=== PATIENT | female | born 2000 | race African-American/Black ===

== ENCOUNTER 2022-04-29 19:18 | Observation (INO) ==
[2022-04-29 20:22] LABS: BILIRUBIN,URINE NEGATIVE (NEGATIVE); BLOOD/HEMOGLOBIN,URINE NEGATIVE (NEGATIVE); GLUCOSE, URINE NEGATIVE (NEGATIVE); KETONES,URINE 2+ (NEGATIVE); LEUKOCYTE ESTERASE ,URINE 3+ (NEGATIVE); NITRITES,URINE NEGATIVE (NEGATIVE); PROTEIN,URINE 2+ (NEGATIVE); UROBILINOGEN,URINE 1+ (NORMAL)
[2022-04-29 20:30] LABS: AMNISURE ROM TEST NO MEMBRANES RUPTURE (NO RUPTURE); COLOR,URINE YELLOW (YELLOW)
[2022-04-29 20:31] LABS: APPEARANCE,URINE SLIGHTLY HAZY (CLEAR)
[2022-04-29 20:38] LABS: BACTERIA,URINE TRACE /HPF (NEGATIVE); RBC,URINE 0-2 /HPF (0-3); SQUAMOUS EPITHELIAL CELL,UR FEW /HPF (NEGATIVE)
[2022-04-29 20:39] LABS: YEAST,URINE RARE /HPF (NEGATIVE)
[2022-04-29] MEDS ORDERED: LR 1,000 ML IV 1,000 ML IV ONE (20:46)
[2022-04-29] MEDS ORDERED: ROCEPHIN VIAL 1 GRAM 1 G in NS 100 ML IV 100 ML IV ONE (20:47)
[2022-04-29] MEDS ORDERED: NS 1,000 ML IV 1,000 ML ONE ×2 (20:49→21:40)
[2022-04-29] MEDS ORDERED: NS 1,000 ML IV 1,000 ML IV ONE ×2 (20:49→21:39)
[2022-04-29] MEDS ORDERED: ROCEPHIN VIAL 1 GRAM ONE (20:50)
[2022-04-29] MEDS ORDERED: BRETHINE INJ 1 MG VIAL SC ONE ×4 (21:39→22:18)
[2022-04-29 23:06] LABS: BASOPHILS % (AUTO) 0.5 % (0.2-1.0); EOSINOPHILS % (AUTO) 0.2 % (0.9-2.9); HEMATOCRIT 27.8 % (36.0-47.0); HEMOGLOBIN 9.4 g/dL (12.0-16.0); LYMPHOCYTES # (AUTO) 1.8 X10^3/uL (1.3-2.9); MEAN CORPUSCULAR HEMOGLOBIN 25.7 pg (27.0-34.0); MEAN CORPUSCULAR VOLUME 75.6 fL (80.0-100.0); MEAN PLATELET VOLUME 6.9 fL (7.4-11.0); MONOCYTES # (AUTO) 0.5 x10^3/uL (0.3-0.8); MONOCYTES % (AUTO) 5.7 % (0.0-13.0); NEUTROPHILS # (AUTO) 5.7 x10^3/uL (2.2-4.8); NEUTROPHILS % (AUTO) 71.6 % (42.0-75.0); RED BLOOD COUNT 3.67 X10^6/uL (3.5-5.4); RED CELL DISTRIBUTION WIDTH 13.7 % (11.6-16.5)
[2022-04-29 23:17] LABS: ALANINE AMINOTRANSFERASE 10 Units/L (12-78); ALBUMIN 2.2 g/dL (3.4-5.0); ALKALINE PHOSPHATASE 181 Units/L (46-116); ASPARTATE AMINO TRANSFERASE 14 Units/L (15-37); BLOOD UREA NITROGEN 4 mg/dL (7-18); CALCIUM 7.7 mg/dL (8.5-10.1); CARBON DIOXIDE 20.4 mmol/L (21-32); CHLORIDE 106 mmol/L (98-107); COR CA(FOR HYPOALB) 9.1 mg/dL (8.5-10.1); CREATININE 0.64 mg/dL (0.55-1.02); SODIUM 137 mmol/L (136-145); eGFR NON BLACK RACES > 60 (>60)
[2022-04-30] MEDS: NS 1,000 ML IV 1,000 ML IV SCH ×2 (00:02→07:42)
[2022-04-30] MEDS: K-DUR TAB 20 MEQ PO SCH ×2 (00:03→08:04)
[2022-04-30 00:22] VITALS: BMI 36.2
[2022-04-30] MEDS: MAGNESIUM SULFATE 1 GRAM/100 mL PREMIX 1 G/100 ML BAG IV SCH ×2 (00:49→01:57)
[2022-04-30 04:52] LABS: BASOPHILS % (AUTO) 0.2 % (0.2-1.0); EOSINOPHILS % (AUTO) 0.2 % (0.9-2.9); HEMATOCRIT 24.1 % (36.0-47.0); HEMOGLOBIN 8.2 g/dL (12.0-16.0); LYMPHOCYTES # (AUTO) 1.4 X10^3/uL (1.3-2.9); MEAN CORPUSCULAR HEMOGLOBIN 25.2 pg (27.0-34.0); MEAN CORPUSCULAR HGB CONC 33.9 g/dL (33.0-35.0); MEAN CORPUSCULAR VOLUME 74.3 fL (80.0-100.0); MEAN PLATELET VOLUME 7.3 fL (7.4-11.0); MONOCYTES # (AUTO) 0.6 x10^3/uL (0.3-0.8); MONOCYTES % (AUTO) 7.5 % (0.0-13.0); NEUTROPHILS # (AUTO) 5.6 x10^3/uL (2.2-4.8); NEUTROPHILS % (AUTO) 74.1 % (42.0-75.0); RED BLOOD COUNT 3.25 X10^6/uL (3.5-5.4); RED CELL DISTRIBUTION WIDTH 13.7 % (11.6-16.5); WHITE BLOOD COUNT 7.5 X10^3/uL (3.6-10.0)
[2022-04-30 04:58] LABS: ALANINE AMINOTRANSFERASE 9 Units/L (12-78); ALBUMIN 1.9 g/dL (3.4-5.0); ALKALINE PHOSPHATASE 152 Units/L (46-116); ASPARTATE AMINO TRANSFERASE 12 Units/L (15-37); BLOOD UREA NITROGEN 4 mg/dL (7-18); CALCIUM 7.7 mg/dL (8.5-10.1); CARBON DIOXIDE 20.9 mmol/L (21-32); CHLORIDE 107 mmol/L (98-107); COR CA(FOR HYPOALB) 9.4 mg/dL (8.5-10.1); SODIUM 136 mmol/L (136-145); TOTAL PROTEIN 5.2 g/dL (6.4-8.2); eGFR NON BLACK RACES > 60 (>60)
[2022-04-30 05:40] LABS: PLATELET MORPHOLOGY COMMENT NORMAL (NORMAL)
[2022-04-30 05:51] LABS: HYPOCHROMASIA SLIGHT; MICROCYTOSIS SLIGHT
[2022-04-30] MEDS ORDERED: NS 100 ML IV 100 ML with VENOFER 400 MG IV NR ×2 (09:26)
[2022-04-30 12:42] VITALS: BP 122/79
[2022-04-30] MEDS ORDERED: ROCEPHIN 1 GRAM IV PREMIX 1 G/50 ML IV.SOLN. IV SCH (20:00)
== END 2022-04-30 13:00 | disposition home or self-care (01) ==
LOC: ER 19:28 → MED/SURG 19:28
PROVIDERS: ADMIT Obstetrics & Gynecology Obstetrics; ATTEND Specialist
DX: O47.03 False labor before 37 completed weeks of gestation, third trimester; O23.43 Unspecified infection of urinary tract in pregnancy, third trimester; N39.0 Urinary tract infection, site not specified; Z3A.35 35 weeks gestation of pregnancy

== ENCOUNTER 2022-05-13 11:25 | Inpatient (IN) ==
[2022-05-19] MEDS ORDERED: BETADINE SOLN ONE (06:23)
[2022-05-19] MEDS ORDERED: PITOCIN ONE ×2 (06:23→11:15)
[2022-05-19] MEDS ORDERED: D5 1/2 NS 1,000 ML 1,000 ML IV ONE (06:23)
[2022-05-19] MEDS ORDERED: D5 1/2 NS 1,000 mL + PITOCIN 20 UNITS/L IV 20 UNITS/1,000 ML BAG IV ONE (06:24)
[2022-05-19] MEDS ORDERED: D5 LR + PITOCIN 10 UNITS/L 10 UNITS/1,000 ML BAG IV ONE (06:24)
[2022-05-19] MEDS ORDERED: NS 100 ML IV 100 ML ONE ×2 (06:25→10:34)
[2022-05-19] MEDS ORDERED: AMPICILLIN VIAL 2 GRAM ONE (06:25)
--- NOTE | 2022-05-19 07:03 | DR.OB ---
OB Quick Note - Assessment/Plan Assessment/Plan: L&D 05/19/22 at 6:50am S-No complaint. O-Afebrile,VSS FGH=835/140 with good LTV, +accel, no decel. CTX=mild uterine irritability CVX=3cm/100%/0/VTX AROM with clear fluid. IUPC and FSE placed for baby A A-IUP at 38 0/7 weeks for induction Twin (dichorionic/diamniotic) +GBS P-Begin pitocin induction IV ABX in labor Anticipate (pt. still declines C/S)
[2022-05-19] MEDS ORDERED: MORPHINE SULFATE INJ 2 MG INJ IVP PRN (07:36)
[2022-05-19] MEDS ORDERED: NUBAIN INJ 200 MG VIAL MULTIDOSE IVP PRN (07:36)
[2022-05-19] MEDS ORDERED: D5 LR + PITOCIN 10 UNITS/L 10 UNITS/1,000 ML BAG IV PRN (07:36)
[2022-05-19] MEDS ORDERED: AMPICILLIN VIAL 2 GRAM 2 G in NS 100 ML IV + SPIKE MINIBAG* 100 ML IV SCH (07:36)
[2022-05-19] MEDS ORDERED: STADOL INJ IVP PRN (07:36)
[2022-05-19] MEDS ORDERED: REGLAN INJ 10 MG VIAL IVP PRN ×3 (07:36→12:54)
[2022-05-19] MEDS ORDERED: D5 1/2 NS 1,000 ML 1,000 ML IV SCH (07:36)
[2022-05-19] MEDS ORDERED: PITOCIN IVP ONE (07:36)
[2022-05-19] MEDS ORDERED: PHENERGAN INJ 25 MG IM PRN ×2 (07:36→12:26)
[2022-05-19] MEDS: VSL#3 PO SCH ×2 (07:51→09:41)
[2022-05-19] MEDS ORDERED: STADOL INJ ONE (08:04)
[2022-05-19] MEDS ORDERED: FENTANYL VIAL INJ 100 mcg ONE (08:44)
[2022-05-19] MEDS ORDERED: NAROPIN EPIDURAL 0.2% 100 ML ONE (08:45)
[2022-05-19] MEDS ORDERED: LR 1,000 ML IV 1,000 ML IV ONE ×2 (08:45→10:34)
[2022-05-19] MEDS ORDERED: LIDOCAINE 2%-EPI 1:200,000 ONE (10:20)
[2022-05-19] MEDS ORDERED: ANCEF VIAL 1 GRAM ONE (10:34)
[2022-05-19] MEDS ORDERED: ZOFRAN INJ 4 MG VIAL ONE (10:34)
[2022-05-19] MEDS ORDERED: KETAMINE 50 MG/5 ML-NACL SYRNG ONE (10:55)
[2022-05-19] MEDS ORDERED: DILAUDID INJ ONE (11:05)
[2022-05-19] MEDS ORDERED: VERSED ONE (11:10)
[2022-05-19] MEDS ORDERED: DIPRIVAN VIAL 20 ML ONE (11:24)
[2022-05-19] MEDS ORDERED: OFIRMEV IV 1000 MG VIAL 1,000 MG/100 ML VIAL IV ONE (11:29)
[2022-05-19] MEDS ORDERED: DECADRON INJ ONE (11:40)
--- NOTE | 2022-05-19 12:24 | DR.OB ---
OB Quick Note - Assessment/Plan Assessment/Plan: Delivery Note SHED BOSS 05/19/22 at 10:05am Patient complete and pushing. Head delivered over intact perineum. No nuchal cord. Nose and mouth bulb suctioned. Body delivered over intact perineum. Cord clamped x 2 and cut. Infant handed to attendant. Cord sent for gases. Baby A wt=5'15" and 8/9, stable to NBN. Baby A VTX/OA. Second baby stabilized manually and externally. AROM with clear fluid. IUPC placed. Footling breech noted. Uterus clamped down and baby unable to rotate despite pushing and attempts at manual rotation. To C/S.
[2022-05-19] MEDS ORDERED: BENADRYL INJ 50 MG VIAL IVP PRN (12:26)
[2022-05-19] MEDS ORDERED: ZOFRAN INJ 4 MG VIAL IVP PRN ×2 (12:26→12:54)
[2022-05-19] MEDS: AMPICILLIN VIAL 1 GRAM 1 G in NS 50 ML IV + SPIKE MINIBAG* 50 ML IV SCH ×2 (12:32→12:33)
[2022-05-19] MEDS ORDERED: PERCOCET TAB 5/325 MG PO PRN (12:54)
[2022-05-19] MEDS ORDERED: NARCAN INJ IVP PRN (12:54)
[2022-05-19] MEDS ORDERED: MYLICON TAB 80 MG CHEW PO PRN (12:54)
[2022-05-19] MEDS ORDERED: ADACEL or BOOSTRIX TDaP VACCINE IM ONE (12:54)
[2022-05-19] MEDS ORDERED: TORADOL 30 MG VIAL IVP PRN (12:54)
[2022-05-19] MEDS ORDERED: D5 1/2 NS 1,000 ML 1,000 ML with PITOCIN 20 UNITS IV SCH ×2 (13:00)
[2022-05-19] MEDS: BENADRYL INJ 50 MG VIAL IVP PRN ×2 (18:06→23:26)
[2022-05-20 05:25] LABS: HEMATOCRIT 25.5 % (36.0-47.0); HEMOGLOBIN 8.7 g/dL (12.0-16.0)
[2022-05-20] MEDS: COLACE CAP 100 MG PO SCH ×2 (08:18→20:44)
[2022-05-20] MEDS: PRENATAL PLUS PO SCH (08:18)
[2022-05-20] MEDS: VSL#3 PO SCH (08:18)
[2022-05-20] MEDS: PERCOCET TAB 5/325 MG PO PRN ×2 (09:46→19:31)
[2022-05-20] MEDS: BACTROBAN TOPICAL OINT TOP SCH ×2 (13:22→22:00)
[2022-05-20] MEDS: MOTRIN TAB 800 MG PO PRN ×2 (13:23→23:39)
[2022-05-20] MEDS: FERROUS GLUCONATE PO SCH (16:27)
[2022-05-21] MEDS: PERCOCET TAB 5/325 MG PO PRN (05:32)
[2022-05-21] MEDS: BACTROBAN TOPICAL OINT TOP SCH (05:32)
[2022-05-21] MEDS: FERROUS GLUCONATE PO SCH (06:00)
[2022-05-21 08:13] VITALS: BP 110/74
[2022-05-21] MEDS: COLACE CAP 100 MG PO SCH (08:16)
[2022-05-21] MEDS: VSL#3 PO SCH (08:16)
[2022-05-21] MEDS: PRENATAL PLUS PO SCH (08:17)
== END 2022-05-21 11:10 | disposition home or self-care (01) | DRG 787 ==
LOC: LD 05-19 06:12 → MED/SURG 05-19 13:04
PROVIDERS: ADMIT Specialist; ATTEND Specialist
DX: N39.0 Urinary tract infection, site not specified; Z20.822 Contact with and (suspected) exposure to COVID-19; O32.1XX2 Maternal care for breech presentation, fetus 2; O99.013 Anemia complicating pregnancy, third trimester; Z37.2 Twins, both liveborn; O30.043 Twin pregnancy, dichorionic/diamniotic, third trimester; B95.1 Streptococcus, group B, as the cause of diseases classified elsewhere; O98.82 Other maternal infectious and parasitic diseases complicating childbirth; O31.8X32 Other complications specific to multiple gestation, third trimester, fetus 2; Z3A.38 38 weeks gestation of pregnancy; O23.33 Infections of other parts of urinary tract in pregnancy, third trimester; D50.8 Other iron deficiency anemias